=== PATIENT | female | born 1995 | race Caucasian/White ===

== ENCOUNTER 2017-02-12 22:23 | Observation (INO) | payer MEDICAID ==
[~2017-02-12] VITALS: Ht 160 cm; Wt 81.6 kg
[~2017-02-12 22:23] MED LIST: DOCU-138 PO; IRON-15 PO; PREN-88 PO
== END 2017-02-13 00:35 | disposition home or self-care (01) ==
LOC: L&D 22:23
PROVIDERS: ADMIT Obstetrics & Gynecology; ATTEND Obstetrics & Gynecology
DX: O26.899 Other specified pregnancy related conditions, unspecified trimester (principal); R10.2 Pelvic and perineal pain; Z3A.00 Weeks of gestation of pregnancy not specified
CPT/HCPCS: 99281; G0378